=== PATIENT | female | born 1995 | race Hispanic/Latino ===

== ENCOUNTER 2021-09-18 10:02 | Outpatient (CLI) | payer OTHER | END 2021-09-18 10:03 | disposition home or self-care (01) | LOC: CSHULT 10:02 | PROVIDERS: ATTEND Family Medicine | DX: Z34.02 Encounter for supervision of normal first pregnancy, second trimester (principal); Z3A.20 20 weeks gestation of pregnancy | CPT/HCPCS: 76805 ==

== ENCOUNTER 2022-01-30 09:15 | Day surgery (SDC) | payer OTHER ==
[2022-01-30 09:57] VITALS: BMI 41.7
[2022-01-30] MEDS ORDERED: hydrALAZINE 20 MG/ML VIAL SLOW IVP PRN (11:11)
[2022-01-30] MEDS ORDERED: Morphine 10 MG/ML VIAL IM SCH (11:15)
[2022-01-30] MEDS ORDERED: Promethazine HCl 25 MG/ML VIAL IM SCH (11:15)
[2022-01-30] MEDS ORDERED: Morphine 10 MG/ML VIAL ONE (11:23)
== END 2022-01-30 13:50 | disposition home or self-care (01) ==
LOC: CSHLD/OP 09:15
PROVIDERS: ATTEND Family Medicine
DX: O47.1 False labor at or after 37 completed weeks of gestation (principal); Z3A.39 39 weeks gestation of pregnancy; Z79.899 Other long term (current) drug therapy; Z88.8 Allergy status to other drugs, medicaments and biological substances
CPT/HCPCS: 96372; 99282; J2270; J2550

== ENCOUNTER 2022-06-14 20:02 | Emergency (ER) | payer MEDICAID, SELFPAY ==
[2022-06-14 21:13] LABS: Bilirubin Neg (Negative); Blood, Urine 50 (Negative); Clarity Slightly Cloudy (Clear); Glucose, Urine (Dipstick) >=1000 mg/dL (Negative); Ketone, Urine 5 mg/dL (Negative); Leukocyte 500 (Negative); Nitrite Negative (Negative); Protein, Urine (Dipstick) 30 mg/dl (Neg-Trace); Specific Gravity, Urine 1.015 (1.005-1.030); Urobilinogen Normal mg/dL (Less than 2)
[2022-06-14 21:23] LABS: Bacteria/HPF 3+ HPF (None Seen); RBC/HPF 0-3 HPF (0-3); Squamous Epithelial 0-3 HPF (0-3); WBC/HPF 0-3 HPF (0-3)
[2022-06-14 23:43] LABS: #Basophils 0.1 10x3/uL (0.0-0.2); #Eosinphils 0.2 10x3/uL (0.0-0.5); #Monocytes 0.5 10x3/uL (0.0-1.1); #Neutrophils 4.3 10x3/uL (1.5-8.4); %Basophils 0.8 % (0.0-2.0); %Eosinophils 2.5 % (0.0-6.0); %Lymphocytes 45.9 % (18.0-47.0); %Monocytes 5.2 % (0.0-10.0); %Neutrophils 45.2 % (40.0-75.0); Hemoglobin 13.7 g/dL (12.0-15.5); Mean Corpuscular HGB CONC 34.3 g/dL (32.0-36.0); Mean Corpuscular Hemoglobin 28.4 pg (27.0-33.0); Mean Corpuscular Volume 82.6 fl (81.6-98.3); Mean Platelet Volume 9.9 fl (7.4-10.4); Platelet Count 345 10x3/uL (150-450); RBC Distribution Width 13.1 % (11.5-14.5); Red Blood Cell (RBC) Count 4.83 10x6/uL (3.90-5.03); White Blood Cell (WBC) Count 9.5 10x3/uL (3.5-10.5)
[2022-06-14 23:57] LABS: ALT (SGPT) 181 U/L (8-55); AST (SGOT) 113 U/L (5-34); Albumin 4.2 g/dL (3.5-5.0); Alkaline Phosphatase 119 U/L (40-110); Anion Gap 16 mmol/L (10-20); BUN (Urea Nitrogen) 9 mg/dL (7.0-18.7); Bilirubin, Total 0.6 mg/dL (0.2-1.2); Calc. Creatinine Clearance 0 mL/min (70-130); Calcium 10.1 mg/dL (7.8-10.44); Carbon Dioxide 24 mmol/L (22-29); Chloride 96 mmol/L (98-107); Estimated GFR 79; Globulin 3.6 g/dL (2.4-3.5); Potassium 4.2 mmol/L (3.5-5.1); Protein, Total 7.8 g/dL (6.0-8.3); Sodium 132 mmol/L (136-145)
[2022-06-15 00:06] LABS: Glucose 596 mg/dL (70-105)
[2022-06-15] MEDS ORDERED: cefTRIAXone\\ROCEPHIN 1 GM VIAL ONE (00:29)
[2022-06-15] MEDS ORDERED: Insulin Regular 300 UNITS/3 ML VIAL ONE ×2 (00:29→01:48)
[2022-06-15 15:33] LABS: Hemoglobin A1c 11.4 % (4.0-6.0)
== END 2022-06-15 02:45 | disposition home or self-care (01) ==
LOC: CSHERS 20:02
DX: E11.65 Type 2 diabetes mellitus with hyperglycemia (principal); N39.0 Urinary tract infection, site not specified
CPT/HCPCS: 36415; 36416; 80053; 81003; 81015; 83036; 85025; 96361; 96365; 96375; 96376; J0696; J1815